=== PATIENT | female | born 1945 | race Caucasian/White ===

== ENCOUNTER 2017-10-08 18:09 | Observation (INO) | payer OTHER ==
[~2017-10-08] VITALS: Ht 154.9 cm; Wt 73.9 kg
[2017-10-08 18:45] VITALS: BP 128/60
[2017-10-08] MEDS ORDERED: FUROSEMIDE INJ 10 MG/ML 2 ML VIAL IV PRN (20:15)
[2017-10-08] MEDS ORDERED: SODIUM CHLORIDE 0.9% 250ML 250 ML IV ONE (21:00)
[2017-10-08 21:49] LABS: BASOPHILS % 0.7 % (0.0-1.0); EOSINOPHILS # (AUTO) 0.1 (0.0-0.4); EOSINOPHILS % 1.5 % (0.0-6.0); LYMPHOCYTES # (AUTO) 1.3 (1.0-3.2); LYMPHOCYTES % 21.3 % (18.0-39.1); MEAN CORPUSCULAR VOLUME 76.6 fL (81-99); MONOCYTES # (AUTO) 0.5 (0.2-0.8); MONOCYTES % 9.1 % (4.4-11.3); NEUTROPHILS % 66.9 % (38.7-80.0); PLATELET COUNT 259 x10e3/uL (140-360); RED BLOOD COUNT 2.65 x10e6/uL (3.6-5.1); RED CELL DISTRIBUTION WIDTH 16.2 % (11.7-14.4)
[2017-10-08 21:57] LABS: HEMOGLOBIN 6.1 g/dL (12.0-16.0)
[2017-10-08 21:58] LABS: HEMATOCRIT 20.3 % (34.2-44.1)
[2017-10-09] VITALS: BP 133/60
[2017-10-09] MEDS ORDERED: SODIUM CHLORIDE 0.9% 250ML 250 ML ONE (04:23)
[2017-10-09 04:47] VITALS: BP 128/60
[2017-10-09] MEDS ORDERED: B-121000 MCG PO (05:16)
[2017-10-09] MEDS ORDERED: LISINOPRIL10 MG PO (05:16)
[2017-10-09] MEDS ORDERED: ALPRAZOLAM0.25 MG PO (05:16)
[2017-10-09] MEDS ORDERED: VITAMIN D1000 UNI1 PO (05:16)
[2017-10-09] MEDS ORDERED: LOVASTATIN40 MG PO (05:16)
[2017-10-09] MEDS ORDERED: CELEBREX100 MG PO (05:16)
[2017-10-09] MEDS ORDERED: OMEPRAZOLE20 M1 PO (05:16)
[2017-10-09] MEDS ORDERED: ASACOL HD800 MG PO (05:16)
[2017-10-09] MEDS ORDERED: ZOLPIDEM TARTRA10 MG PO (05:16)
[2017-10-09] MEDS ORDERED: SERTRALINE HCL100 MG PO (05:16)
[2017-10-09 08:13] VITALS: BP 120/57
--- NOTE | 2017-10-09 09:59 | History and Physical ---
PCP: Dr. Brooks Guerra CHIEF COMPLAINT: Acute blood loss anemia. HISTORY: A 72-year-old female who has osteoarthritis has been taking Mobic and NSAIDs for pain. The patient complained of melena. She does have some epigastric discomfort. The patient's hemoglobin was 6.1 and hematocrit 20.3. The patient did receive 2 units blood transfusion. At this time, the patient does not want to stay for any endoscopy. She did have endoscopy previously by Dr. Damian, and did have some gastric ulcer. Patient does want to go home for now after blood transfusion. Advised the patient not to take any more NSAID medication. PAST MEDICAL HISTORY: Upper GI bleed, gastritis, gastric ulcer, osteoarthritis, ulcerative colitis. PAST SURGICAL HISTORY: Noncontributory. SOCIAL HISTORY: Patient does not smoke or use alcohol. No regular drugs. ALLERGIES: AMOXICILLIN, SULFA AND ACID. MEDICATIONS: List is available for review. She is on Xanax, Celebrex, Mobic, Zoloft, Ambien, Asacol, lovastatin, lisinopril, and vitamin D3. REVIEW OF SYSTEMS: As mentioned above. PHYSICAL EXAMINATION VITAL SIGNS: Temperature is 98, blood pressure 120/57, pulse rate 76, respiration 18. GENERAL: The patient is not in acute distress. HEENT: Normocephalic, atraumatic and anicteric. NECK: Supple grossly. PULMONARY: Clear to auscultation. CARDIOVASCULAR: Regular rate and rhythm. ABDOMEN: Soft and unremarkable. EXTREMITIES: No cyanosis or edema. NEUROLOGICAL: No focal deficit. LABORATORY: As mentioned. IMPRESSION: Upper gastrointestinal bleed: Patient wants to go home. Patient wants to go home today. Discharge the patient after 2 units of blood transfusion. PPI. Carafate suspension. Tylenol No. 3 instead of NSAID medications for pain. Job#: [id number] RI cc:BROOKS GUERRA MD
== END 2017-10-09 11:23 | disposition home or self-care (01) ==
LOC: IMCU 18:22
PROVIDERS: ADMIT Internal Medicine; ATTEND Internal Medicine
DX: K92.1 Melena (principal); D62 Acute posthemorrhagic anemia; K51.90 Ulcerative colitis, unspecified, without complications; K25.9 Gastric ulcer, unspecified as acute or chronic, without hemorrhage or perforation; M19.90 Unspecified osteoarthritis, unspecified site; Z87.11 Personal history of peptic ulcer disease; Z88.0 Allergy status to penicillin; Z88.2 Allergy status to sulfonamides; Z88.8 Allergy status to other drugs, medicaments and biological substances
CPT/HCPCS: 36415; 36430 ×2; 85025; 86850; 86900; 86920; G0378 ×2; J7050 ×2; P9016 ×2

== ENCOUNTER 2018-12-23 14:46 | Inpatient (IN) | payer MEDICARE, OTHER ==
[~2018-12-23] VITALS: Ht 170.2 cm; Wt 62.3 kg
[~2018-12-23 14:46] MED LIST: ALPRAZOLAM0.25 MG PO; ASACOL HD800 MG PO; B-121000 MCG PO; CELEBREX100 MG PO; LISINOPRIL10 MG PO; LOVASTATIN40 MG PO; OMEPRAZOLE20 M1 PO; SERTRALINE HCL100 MG PO; VITAMIN D1000 UNI1 PO; ZOLPIDEM TARTRA10 MG PO
[2018-12-23] MEDS ORDERED: HYDROCODONE/APAP 5MG-325MG TAB PO ONE (15:15)
[2018-12-23] MEDS ORDERED: CYCLOBENZAPRINE HCL 10 MG TAB PO ONE (15:15)
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
[2018-12-23 19:37] LABS: BASOPHILS # (AUTO) 0.1 (0.0-0.1); BASOPHILS % 0.4 % (0.0-1.0); EOSINOPHILS % 0.2 % (0.0-6.0); HEMATOCRIT 38.1 % (34.2-44.1); LYMPHOCYTES # (AUTO) 0.9 (1.0-3.2); LYMPHOCYTES % 7.2 % (18.0-39.1); MEAN CORPUSCULAR HEMOGLOBIN 28.5 pg (28-32); MEAN CORPUSCULAR HGB CONC 34.1 g/dL (31-35); MEAN CORPUSCULAR VOLUME 83.6 fL (81-99); MONOCYTES # (AUTO) 0.6 (0.2-0.8); MONOCYTES % 5.3 % (4.4-11.3); NEUTROPHILS # (AUTO) 10.5 (2.1-6.9); NEUTROPHILS % 86.4 % (38.7-80.0); PLATELET COUNT 160 x10e3/uL (140-360); RED BLOOD COUNT 4.56 x10e6/uL (3.6-5.1)
[2018-12-23 19:43] LABS: INR 0.97; PROTHROMBIN TIME 13.4 seconds (11.9-14.5)
[2018-12-23 19:44] LABS: PARTIAL THROMBOPLASTIN TIME 29.9 seconds (23.8-35.5)
[2018-12-23 19:46] LABS: BILIRUBIN,URINE NEGATIVE (NEGATIVE); CLARITY,URINE SL CLOUDY (CLEAR); COLOR,URINE YELLOW (YELLOW); KETONES,URINE NEGATIVE (NEGATIVE); LEUKOCYTE ESTERASE ,URINE NEGATIVE (NEGATIVE); NITRITE,URINE NEGATIVE (NEGATIVE); PROTEIN,URINE DIPSTICK NEGATIVE (NEGATIVE); URINE UROBILINOGEN 0.2 mg/dL (0.2 - 1)
[2018-12-23 19:51] LABS: ALANINE AMINOTRANSFERASE 18 IU/L (0-55); ALBUMIN 4.4 g/dL (3.5-5.0); ALBUMIN/GLOBULIN RATIO 1.5 (0.8-2.0); ALKALINE PHOSPHATASE 91 IU/L (40-150); ANION GAP 14.1 mmol/L (8-16); BLOOD UREA NITROGEN 19 mg/dL (7-26); BUN/CREATININE RATIO 21 (6-25); CALCIUM 9.9 mg/dL (8.4-10.2); CARBON DIOXIDE 21 mmol/L (22-29); CHLORIDE 105 mmol/L (98-107); EST GLOMERULAR FILTRATION RATE > 60 ML/MIN (60-); GLUCOSE 119 mg/dL (74-118); POTASSIUM 3.1 mmol/L (3.5-5.1); SODIUM 137 mmol/L (136-145)
[2018-12-23 19:56] LABS: BACTERIA,URINE FEW /HPF; EPITHELIAL CELLS,URINE FEW /LPF
[2018-12-23] MEDS ORDERED: HYDROMORPHONE 1MG/1ML INJ IV STA (20:03)
[2018-12-23] MEDS ORDERED: HYDROMORPHONE 2MG/ML 2 MG/ML ML ONE (20:30)
[2018-12-23] MEDS ORDERED: HYDROMORPHONE 2MG/ML 2 MG/ML ML IV ONE (20:30)
--- NOTE | 2018-12-23 20:39 | NUR ---
MEDICATED FOR PAIN THEN APPLIED POSTERIOR SPLINT WITH ANKLE STIRRUP, TOLERATED WELL, NV'S INTACT
[2018-12-23] MEDS ORDERED: SODIUM CHLORIDE 0.9% 1000ML 1,000 ML IV SCH (20:59)
[2018-12-23] MEDS ORDERED: HYDROMORPHONE 1MG/1ML INJ IV PRN (21:00)
[2018-12-23] MEDS ORDERED: ONDANSETRON HCL INJ 2MG/ML 2ML 2 MG/ML VIAL IV PRN (21:00)
[2018-12-23] MEDS ORDERED: HYDROMORPHONE 2MG/ML 2 MG/ML ML IV PRN (21:30)
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
--- NOTE | 2018-12-23 21:42 | NUR ---
PT DENIES PAIN TO RIGHT ANKLE, RESTING IN POC WITH EYES CLOSED, EASILY AROUSED. SKIN W/D RESP NONLAB. NAD NOTED. CAP REFILL <2 SECONDS TO R FOOT
[2018-12-23] MEDS ORDERED: ASACOL HD800 MG PO (23:22)
--- NOTE | 2018-12-23 23:52 | NUR ---
RECEIVED PATIENT AAOX3. RLE IN A SPLINT, PULSES INTACT. ABRASIONS TO CHIN, AND RIGHT KNEE. SKIN TEAR TO RIGHT FOREARM. STATES PAIN 6/10 BUT DOES NOT WANT IV PAIN MEDICATION AT THIS TIME. 18G LEFT AC W/ NS @ 100 ML/HR. UPDATES PATIENT TO PLAN OF CARE. NO NEEDS VOICED AT THIS TIME. BED LOCKED AND IN LOWEST POSITION, CALL LIGHT WITHIN EASY REACH.
[2018-12-24] VITALS (10 sets, daily range): BP systolic 133–166; BP diastolic 62–72
[2018-12-24 06:44] LABS: BASOPHILS % 0.3 % (0.0-1.0); EOSINOPHILS % 0.3 % (0.0-6.0); HEMATOCRIT 32.3 % (34.2-44.1); LYMPHOCYTES # (AUTO) 0.7 (1.0-3.2); LYMPHOCYTES % 10.1 % (18.0-39.1); MEAN CORPUSCULAR HEMOGLOBIN 28.1 pg (28-32); MEAN CORPUSCULAR HGB CONC 33.1 g/dL (31-35); MEAN CORPUSCULAR VOLUME 84.8 fL (81-99); MONOCYTES # (AUTO) 0.6 (0.2-0.8); MONOCYTES % 8.9 % (4.4-11.3); NEUTROPHILS # (AUTO) 5.4 (2.1-6.9); NEUTROPHILS % 80.1 % (38.7-80.0); PLATELET COUNT 139 x10e3/uL (140-360); RED BLOOD COUNT 3.81 x10e6/uL (3.6-5.1)
[2018-12-24 07:03] LABS: ALANINE AMINOTRANSFERASE 13 IU/L (0-55); ALBUMIN 3.5 g/dL (3.5-5.0); ALBUMIN/GLOBULIN RATIO 1.3 (0.8-2.0); ALKALINE PHOSPHATASE 72 IU/L (40-150); ANION GAP 12.5 mmol/L (8-16); BLOOD UREA NITROGEN 15 mg/dL (7-26); BUN/CREATININE RATIO 19 (6-25); CALCIUM 9.1 mg/dL (8.4-10.2); CARBON DIOXIDE 22 mmol/L (22-29); CHLORIDE 104 mmol/L (98-107); CREATININE, SERUM 0.81 mg/dL (0.57-1.11); EST GLOMERULAR FILTRATION RATE > 60 ML/MIN (60-); GLUCOSE 118 mg/dL (74-118); POTASSIUM 3.5 mmol/L (3.5-5.1); SODIUM 135 mmol/L (136-145)
[2018-12-24 07:16] LABS: HEMOGLOBIN 10.7 g/dL (12.0-16.0)
[2018-12-24] MEDS: MELOXICAM 7.5 MG TAB PO SCH ×2 (08:45→16:58)
[2018-12-24] MEDS ORDERED: NON-FORMULARY MEDICATION (Zolpidem Tartrate 10 MG) PO PRN (08:45)
[2018-12-24] MEDS ORDERED: ALPRAZOLAM 0.25 MG TAB PO PRN (08:45)
[2018-12-24] MEDS: SENNOSIDES 8.6 MG TAB PO SCH ×2 (09:00→16:58)
[2018-12-24] MEDS ORDERED: MESALAMINE 1600 MG PO SCH (09:00)
[2018-12-24] MEDS ORDERED: NON-FORMULARY MEDICATION (Cyanocobalamin (Vitamin B-12) (B-12) 1,000 MCG) PO SCH (09:00)
[2018-12-24] MEDS ORDERED: MESALAMINE 400 MG CAP PO SCH (09:00)
[2018-12-24] MEDS ORDERED: ZOLPIDEM TARTRATE 10 MG TAB PO PRN (09:15)
--- NOTE | 2018-12-24 10:00 | NUR ---
MD EDMOND ROUNDED ON PT AND EXPLAINED PT OPTIONS . PT OPT FOR NO SX DURING ADMISSION . MD EDMOND ORDERED A REG DIET AND PHYSICAL THERAPY TO COME WORK WITH PT A THIS TIME
[2018-12-24] MEDS: LISINOPRIL 10 MG TAB PO SCH (10:27)
[2018-12-24] MEDS: SERTRALINE HCL 100 MG TAB PO SCH (10:28)
[2018-12-24] MEDS: CHOLECALCIFEROL 1,000 UNIT TAB PO SCH (10:28)
[2018-12-24] MEDS: PANTOPRAZOLE SOD 40 MG TABEC PO SCH (10:28)
[2018-12-24] MEDS: CYANOCOBALAMIN 1,000 MCG TAB PO SCH (10:28)
[2018-12-24] MEDS: HYDROCODONE/APAP 5MG-325MG TAB PO PRN ×2 (10:29→22:06)
--- NOTE | 2018-12-24 13:59 | NUR ---
Spoke with Dr. Bonilla regarding patient being placed in a boot for therapy. Dr. bonilla informed for patient to stay in splint until she follow up with him in the office. He will place her in a boot. patient to be toe touch weight bear
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
--- NOTE | 2018-12-24 14:05 | NUR ---
Visit made by the Spiritual Care Department Pastoral Visitor, Pamela Chicas. PV provided pastoral presence, prayer, hospitality, and supportive listening. Pastoral Visitor informed pt/family of the scope of [facility] and availability. SADIE WADSWORTH Glass [employer] Spiritual Care Department O: [phone] Pager: [phone] ([phone] number calling from)
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
--- NOTE | 2018-12-24 19:20 | NUR ---
RECEIVED PATIENT AAOX3, RESTING IN BED. RLE IN SPLINT. BREATHING EVEN AND UNLABORED. NO NEEDS VOICED AT THIS TIME. BED LOCKED AND IN LOWEST POSITION, CALL LIGHT WITHIN EASY REACH. WILL CONTINUE TO MONITOR PATIENT CLOSELY.
[2018-12-24] MEDS: MESALAMINE 400 MG CAP PO SCH (21:45)
[2018-12-24] MEDS: SIMVASTATIN 20 MG TAB PO SCH (21:45)
[2018-12-25] VITALS (8 sets, daily range): BP systolic 111–135; BP diastolic 56–63
[2018-12-25 06:26] LABS: BASOPHILS % 0.3 % (0.0-1.0); EOSINOPHILS # (AUTO) 0.1 (0.0-0.4); EOSINOPHILS % 0.9 % (0.0-6.0); HEMATOCRIT 30.8 % (34.2-44.1); HEMOGLOBIN 10.2 g/dL (12.0-16.0); LYMPHOCYTES # (AUTO) 0.7 (1.0-3.2); LYMPHOCYTES % 10.6 % (18.0-39.1); MEAN CORPUSCULAR HEMOGLOBIN 27.9 pg (28-32); MEAN CORPUSCULAR HGB CONC 33.1 g/dL (31-35); MEAN CORPUSCULAR VOLUME 84.2 fL (81-99); MONOCYTES # (AUTO) 0.7 (0.2-0.8); MONOCYTES % 9.7 % (4.4-11.3); NEUTROPHILS # (AUTO) 5.2 (2.1-6.9); NEUTROPHILS % 78.1 % (38.7-80.0); PLATELET COUNT 131 x10e3/uL (140-360); RED BLOOD COUNT 3.66 x10e6/uL (3.6-5.1)
[2018-12-25 06:45] LABS: ANION GAP 12.3 mmol/L (8-16); BLOOD UREA NITROGEN 11 mg/dL (7-26); BUN/CREATININE RATIO 14 (6-25); CALCIUM 9.2 mg/dL (8.4-10.2); CARBON DIOXIDE 21 mmol/L (22-29); CHLORIDE 108 mmol/L (98-107); EST GLOMERULAR FILTRATION RATE > 60 ML/MIN (60-); GLUCOSE 129 mg/dL (74-118); POTASSIUM 3.3 mmol/L (3.5-5.1); SODIUM 138 mmol/L (136-145)
[2018-12-25] MEDS: SENNOSIDES 8.6 MG TAB PO SCH ×2 (09:00→17:00)
[2018-12-25] MEDS: HYDROCODONE/APAP 5MG-325MG TAB PO PRN (09:49)
[2018-12-25] MEDS: MESALAMINE 400 MG CAP PO SCH ×2 (09:54→20:18)
[2018-12-25] MEDS: LISINOPRIL 10 MG TAB PO SCH (09:54)
[2018-12-25] MEDS: CYANOCOBALAMIN 1,000 MCG TAB PO SCH (09:55)
[2018-12-25] MEDS: SERTRALINE HCL 100 MG TAB PO SCH (09:55)
[2018-12-25] MEDS: PANTOPRAZOLE SOD 40 MG TABEC PO SCH (09:55)
[2018-12-25] MEDS: CHOLECALCIFEROL 1,000 UNIT TAB PO SCH (09:55)
[2018-12-25] MEDS: ACETAMINOPHEN/CODEINE 300MG - 30MG TAB PO PRN ×2 (15:00→22:07)
--- NOTE | 2018-12-25 19:10 | NUR ---
BED SIDE SHIFT REPORT PERFORMED WITH OFF GOING NURSE Luz BOURGEOIS RN. RECEIVED PT LAYING SEMI FOWLERS IN BED, AAOX3, RR EVEN AND NON-LABORED, ON RA. (R) LOWER EXTREMITY NOTED TO BE IN SPLINT WITH RUTHIE WRAP. LEFT PT LAYING SEMI FOWLERS IN BED, BED IN LOW LOCKED POSITION, SIDE RAILS UPX2, CALL LIGHT AND PHONE WITHIN REACH.
[2018-12-25] MEDS: SIMVASTATIN 20 MG TAB PO SCH (20:18)
[2018-12-26] VITALS (8 sets, daily range): BP systolic 114–141; BP diastolic 53–65
--- NOTE | 2018-12-26 07:00 | NUR ---
BEDSIDE ROUNDS COMPLETE NO DISTRESS NOTED, UPDATED ON POC VOICED UNDERSTANDING, DENIES PAIN AT THIS TIME, CALL LIGHT IN REACH WILL CONTINUE OT MONITOR
[2018-12-26] MEDS: SENNOSIDES 8.6 MG TAB PO SCH ×2 (09:00→17:00)
[2018-12-26] MEDS: SERTRALINE HCL 100 MG TAB PO SCH (09:16)
[2018-12-26] MEDS: LISINOPRIL 10 MG TAB PO SCH (09:16)
[2018-12-26] MEDS: PANTOPRAZOLE SOD 40 MG TABEC PO SCH (09:16)
[2018-12-26] MEDS: CYANOCOBALAMIN 1,000 MCG TAB PO SCH (09:16)
[2018-12-26] MEDS: MESALAMINE 400 MG CAP PO SCH ×2 (09:16→21:28)
[2018-12-26] MEDS: CHOLECALCIFEROL 1,000 UNIT TAB PO SCH (09:18)
--- NOTE | 2018-12-26 15:48 | NUR ---
SPOKE WITH PATIENT SHE HAS CHOSEN [facility] FOR SNF. FILED CHOICE IN CHART. FAXED CLINICALS WILL UPDATE ON PROGRESS.
--- NOTE | 2018-12-26 19:27 | NUR ---
BEDSIDE SHIFT REPORT RECEIVED FROM OFF GOING NURSE Luz BOURGEOIS RN. RECEIVED PT LAYING SEMI FOWLERS IN BED, AAOX3, RR EVEN AND NON-LABORED, ON RA. REPOSITIONED PT FOR COMFORT. (R) LOWER EXTREMITY SPLINT NOTED TO BE INTACT. LEFT PT LAYING SEMI FOWLERS IN BED, BED IN LOW LOCKED POSITION, SIDE RAILS UPX2, CALL LIGHT AND PHONE WITHIN REACH.
[2018-12-26] MEDS ORDERED: SIMVASTATIN 40 MG TAB PO SCH (21:00)
[2018-12-27] VITALS (7 sets, daily range): BP systolic 118–137; BP diastolic 56–64
[2018-12-27 06:27] LABS: ANION GAP 11.6 mmol/L (8-16); BLOOD UREA NITROGEN 15 mg/dL (7-26); BUN/CREATININE RATIO 19 (6-25); CARBON DIOXIDE 23 mmol/L (22-29); CHLORIDE 108 mmol/L (98-107); CREATININE, SERUM 0.79 mg/dL (0.57-1.11); EST GLOMERULAR FILTRATION RATE > 60 ML/MIN (60-); GLUCOSE 113 mg/dL (74-118); POTASSIUM 3.6 mmol/L (3.5-5.1); SODIUM 139 mmol/L (136-145)
--- NOTE | 2018-12-27 07:16 | NUR ---
Rcvd patient in report this am. Patient is asleep in bed at this time. No s/s of distress noted
[2018-12-27] MEDS: SENNOSIDES 8.6 MG TAB PO SCH ×2 (09:00→17:00)
[2018-12-27] MEDS: MESALAMINE 400 MG CAP PO SCH (09:20)
[2018-12-27] MEDS: CYANOCOBALAMIN 1,000 MCG TAB PO SCH (09:21)
[2018-12-27] MEDS: SERTRALINE HCL 100 MG TAB PO SCH (09:21)
[2018-12-27] MEDS: CHOLECALCIFEROL 1,000 UNIT TAB PO SCH (09:21)
[2018-12-27] MEDS: PANTOPRAZOLE SOD 40 MG TABEC PO SCH (09:21)
[2018-12-27] MEDS: LISINOPRIL 10 MG TAB PO SCH (09:21)
--- NOTE | 2018-12-27 09:30 | NUR ---
IMM EXPLAINED TO PT, SIGNED AND PLACED ON CHART COPY TO PT IN CARE TRANSITION FOLDER
--- NOTE | 2018-12-27 14:56 | NUR ---
SPOKE WITH [facility] PT ACCEPTED TO GO TODAY ROOM [address] [place] [id number] [facility] [id number], CALL REPORT TO [phone].
--- NOTE | 2018-12-27 15:21 | NUR ---
Castano catheter removed at this time. Tip intact. 600 mL of clear, orange urine noted. Patient due to void in 6 hours.
--- NOTE | 2018-12-27 17:32 | NUR ---
Patient voided at this time.
--- NOTE | 2018-12-27 17:50 | NUR ---
Report called to [facility] and spoke with ben
--- NOTE | 2018-12-27 18:05 | NUR ---
IV removed from L AC, tip intact. Pressure dressing applied.
--- NOTE | 2018-12-27 19:02 | NUR ---
Patient discharged from facility to SNF. Patient transported via [facility]. Report was called prior to discharge and spoke with
== END 2018-12-27 18:58 | DRG 563 ==
LOC: ER 14:46 → ERHOLD 21:34 → MED/SURG 23:59
PROVIDERS: ADMIT Internal Medicine; ATTEND Internal Medicine
DX: S82.851A Displaced trimalleolar fracture of right lower leg, initial encounter for closed fracture (principal); S00.81XA Abrasion of other part of head, initial encounter; S80.01XA Contusion of right knee, initial encounter; S20.212A Contusion of left front wall of thorax, initial encounter; S00.531A Contusion of lip, initial encounter; I10 Essential (primary) hypertension; E11.9 Type 2 diabetes mellitus without complications; E78.5 Hyperlipidemia, unspecified; F41.9 Anxiety disorder, unspecified; Z82.49 Family history of ischemic heart disease and other diseases of the circulatory system; V43.52XA Car driver injured in collision with other type car in traffic accident, initial encounter; Y93.89 Activity, other specified; Y92.410 Unspecified street and highway as the place of occurrence of the external cause
CPT/HCPCS: 36415; 51700; 70450; 70486; 71045; 72125; 80048; 80053; 81001; 85025; 85610; 85730; 93005; 97139; 99284; J7030

== ENCOUNTER 2024-10-11 08:29 | Inpatient (IN) | payer MEDICARE ==
[2024-10-11] VITALS (7 sets, daily range): BP systolic 120–129; BP diastolic 46–64; PULSE 64–74; RESP 16–18; TEMP 96.7–98.5; O2SAT 98–100
[~2024-10-11] VITALS: Ht 170.2 cm; Wt 62.1 kg
[2024-10-11] MEDS: METHYLPREDNISOLONE SOD SUCC 125 MG/2ML VIAL IV ONE (09:19)
[2024-10-11 09:21] LABS: BASOPHILS % 0.8 % (0.0-1.0); EOSINOPHILS # (AUTO) 0.1 (0.0-0.4); EOSINOPHILS % 2.6 % (0.0-6.0); HEMATOCRIT 35.1 % (34.2-44.1); HEMOGLOBIN 10.8 g/dL (12.0-16.0); LYMPHOCYTES # (AUTO) 0.7 (1.0-3.2); LYMPHOCYTES % 13.9 % (18.0-39.1); MEAN CORPUSCULAR HEMOGLOBIN 27.5 pg (28-32); MEAN CORPUSCULAR HGB CONC 30.8 g/dL (31-35); MEAN CORPUSCULAR VOLUME 89.3 fL (81-99); MONOCYTES # (AUTO) 0.3 (0.2-0.8); MONOCYTES % 6.9 % (4.4-11.3); NEUTROPHILS # (AUTO) 3.7 (2.1-6.9); NEUTROPHILS % 75.2 % (38.7-80.0); RED BLOOD COUNT 3.93 x10e6/uL (3.6-5.1); WHITE BLOOD COUNT 4.96 x10e3/uL (4.8-10.8)
[2024-10-11 09:25] LABS: PLATELET COUNT 9 x10e3/uL (140-360)
[2024-10-11 09:29] LABS: INR 0.91; PROTHROMBIN TIME 12.8 seconds (11.9-14.5)
[2024-10-11 09:42] LABS: ALBUMIN 3.8 g/dL (3.5-5.0); ALBUMIN/GLOBULIN RATIO 1.5 (0.8-2.0); ANION GAP 15.5 mmol/L (8-16); BILIRUBIN,TOTAL 0.6 mg/dL (0.2-1.2); CALCIUM 9.1 mg/dL (8.4-10.2); CREATININE, SERUM 1.07 mg/dL (0.57-1.11); MAGNESIUM 1.8 MG/DL (1.3-2.1); POTASSIUM 3.5 mmol/L (3.5-5.1); TOTAL PROTEIN 6.4 g/dL (6.5-8.1)
[2024-10-11] MEDS ORDERED: ONDANSETRON HCL INJ 2MG/ML 2ML 2 MG/ML VIAL IV PRN (09:45)
[2024-10-11 09:48] LABS: CLARITY,URINE TURBID (CLEAR); COLOR,URINE BROWN (YELLOW)
[2024-10-11 09:49] LABS: BILIRUBIN,URINE MODERATE (NEGATIVE); GLUCOSE, URINE NEGATIVE (NEGATIVE); KETONES,URINE TRACE (NEGATIVE); LEUKOCYTE ESTERASE ,URINE TRACE (NEGATIVE); NITRITE,URINE NEGATIVE (NEGATIVE); PH,URINE 5.5 (5 - 7); PROTEIN,URINE DIPSTICK >=300 (NEGATIVE); TROPONIN I 0.005 ng/mL (0-0.300); URINE UROBILINOGEN 1 mg/dL (0.2 - 1)
[2024-10-11 09:55] LABS: BACTERIA,URINE FEW /HPF; EPITHELIAL CELLS,URINE FEW /LPF; RBC,URINE >50 /HPF (0-5)
[2024-10-11] MEDS ORDERED: DEXTROSE 50% SYRINGE 50 ML IV PRN (13:00)
[2024-10-11] MEDS: SODIUM CHLORIDE 0.45% 1,000 ML IV SCH (13:15)
[2024-10-11 13:44] LABS: CHOL/HDL RATIO 3.4 (3.0-3.6)
[2024-10-11 14:19] LABS: FOLATE 12.2 ng/mL (7.0-15.4)
[2024-10-11 16:16] LABS: BASOPHILS % 0.3 % (0.0-1.0); EOSINOPHILS % 0.2 % (0.0-6.0); HEMATOCRIT 34.8 % (34.2-44.1); HEMOGLOBIN 10.7 g/dL (12.0-16.0); LYMPHOCYTES # (AUTO) 0.3 (1.0-3.2); LYMPHOCYTES % 5.5 % (18.0-39.1); MEAN CORPUSCULAR HEMOGLOBIN 27.1 pg (28-32); MEAN CORPUSCULAR HGB CONC 30.7 g/dL (31-35); MEAN CORPUSCULAR VOLUME 88.1 fL (81-99); MONOCYTES # (AUTO) 0.1 (0.2-0.8); MONOCYTES % 1.2 % (4.4-11.3); NEUTROPHILS # (AUTO) 5.3 (2.1-6.9); NEUTROPHILS % 91.9 % (38.7-80.0); RED BLOOD COUNT 3.95 x10e6/uL (3.6-5.1); RED CELL DISTRIBUTION WIDTH 14.6 % (11.7-14.4); WHITE BLOOD COUNT 5.78 x10e3/uL (4.8-10.8)
[2024-10-11 16:22] LABS: PLATELET COUNT 26 x10e3/uL (140-360)
[2024-10-11] MEDS: INSULIN REGULAR, HUMAN 100 UNIT/1 ML SQ SCH (16:30)
[2024-10-11] MEDS: IMMUNE GLOBULIN IV SCH (17:45)
[2024-10-11] MEDS: SODIUM CHLORIDE 0.9% 250ML 250 ML ONE (19:52)
[2024-10-11] MEDS: ACETAMINOPHEN 325 MG TAB PO PRN (21:30)
[2024-10-12] VITALS (8 sets, daily range): BP systolic 111–137; BP diastolic 49–93; PULSE 58–84; RESP 16–18; TEMP 97.2–99.2; O2SAT 96–98
[2024-10-12 04:55] LABS: BASOPHILS % 0.2 % (0.0-1.0); HEMATOCRIT 28.9 % (34.2-44.1); HEMOGLOBIN 9.3 g/dL (12.0-16.0); LYMPHOCYTES # (AUTO) 0.4 (1.0-3.2); MEAN CORPUSCULAR HGB CONC 32.2 g/dL (31-35); MONOCYTES # (AUTO) 0.3 (0.2-0.8); MONOCYTES % 4.9 % (4.4-11.3); NEUTROPHILS # (AUTO) 5.8 (2.1-6.9); NEUTROPHILS % 88.4 % (38.7-80.0); RED BLOOD COUNT 3.44 x10e6/uL (3.6-5.1); RED CELL DISTRIBUTION WIDTH 14.6 % (11.7-14.4); WHITE BLOOD COUNT 6.55 x10e3/uL (4.8-10.8)
[2024-10-12 05:20] LABS: ALBUMIN 3.4 g/dL (3.5-5.0); ANION GAP 13.5 mmol/L (8-16); BILIRUBIN,TOTAL 0.5 mg/dL (0.2-1.2); CREATININE, SERUM 1.09 mg/dL (0.57-1.11); POTASSIUM 3.5 mmol/L (3.5-5.1); TOTAL PROTEIN 6.7 g/dL (6.5-8.1)
[2024-10-12 05:42] LABS: PLATELET COUNT 44 x10e3/uL (140-360)
[2024-10-12 05:55] LABS: FERRITIN 103.69 ng/mL (4.63-204.00)
[2024-10-12] MEDS: SERTRALINE HCL 100 MG TAB PO SCH (09:10)
[2024-10-12] MEDS: OYST-CAL-D 500MG TABLET PO SCH (09:11)
[2024-10-12] MEDS: SODIUM BICARBONATE 8.4% VIAL 50 ML in SODIUM CHLORIDE 0.45% 1,000 ML IV SCH (10:43)
[2024-10-12] MEDS: MESALAMINE 400 MG CAP PO SCH (12:12)
[2024-10-12] MEDS: ALPRAZOLAM 0.25 MG TAB PO PRN (12:13)
[2024-10-12] MEDS: PANTOPRAZOLE SOD 40 MG TABEC PO SCH (12:13)
[2024-10-12] MEDS: SODIUM FERRIC GLUCONATE COMPLX 125 MG in SODIUM CHLORIDE 0.9% 100 ML IV SCH (12:48)
[2024-10-12] MEDS: ZOLPIDEM TARTRATE 10 MG TAB PO PRN (21:59)
[2024-10-12] MEDS: SIMVASTATIN 40 MG TAB PO SCH (21:59)
[2024-10-12] MEDS ORDERED: SODIUM CHLORIDE 0.9% 0 ML ONE (23:49)
[2024-10-12] MEDS ORDERED: IOPAMIDOL 370 MG/ML 100 ML INFUS..BTL INJ ONE (23:49)
[2024-10-13] VITALS (10 sets, daily range): BP systolic 115–156; BP diastolic 52–69; PULSE 62–79; RESP 16–20; TEMP 97.8–99.6; O2SAT 98–100
[2024-10-13] MEDS ORDERED: PANTOPRAZOLE SOD 40 MG TABEC PO SCH (09:00)
[2024-10-13] MEDS ORDERED: MESALAMINE 400 MG CAP PO SCH (09:00)
[2024-10-13] MEDS: LISINOPRIL 10 MG TAB PO SCH (09:00)
[2024-10-13] MEDS: CYANOCOBALAMIN 1,000 MCG TAB PO SCH (09:16)
[2024-10-13] MEDS ORDERED: IOPAMIDOL 370 MG/ML 100 ML INFUS..BTL INJ ONE (10:21)
[2024-10-13] MEDS ORDERED: SODIUM CHLORIDE 0.9% 100 ML ONE (10:21)
[2024-10-13 12:30] LABS: BASOPHILS % 0.5 % (0.0-1.0); EOSINOPHILS % 0.3 % (0.0-6.0); HEMATOCRIT 32.7 % (34.2-44.1); HEMOGLOBIN 9.9 g/dL (12.0-16.0); LYMPHOCYTES % 16.2 % (18.0-39.1); MEAN CORPUSCULAR HEMOGLOBIN 27.1 pg (28-32); MEAN CORPUSCULAR HGB CONC 30.3 g/dL (31-35); MEAN CORPUSCULAR VOLUME 89.6 fL (81-99); MONOCYTES # (AUTO) 0.5 (0.2-0.8); MONOCYTES % 7.8 % (4.4-11.3); NEUTROPHILS # (AUTO) 4.4 (2.1-6.9); NEUTROPHILS % 74.9 % (38.7-80.0); PLATELET COUNT 56 x10e3/uL (140-360); RED BLOOD COUNT 3.65 x10e6/uL (3.6-5.1); WHITE BLOOD COUNT 5.86 x10e3/uL (4.8-10.8)
[2024-10-13 15:36] LABS: HEPATITIS A ANTIBODY IGM (P) Nonreactive; HEPATITIS B CORE IGM (P) Nonreactive; HEPATITIS B SURFACE AG (P) Nonreactive; HEPATITIS C ANTIBODY Nonreactive
[2024-10-14 05:21] LABS: BASOPHILS % 0.6 % (0.0-1.0); EOSINOPHILS # (AUTO) 0.1 (0.0-0.4); EOSINOPHILS % 1.2 % (0.0-6.0); HEMATOCRIT 30.7 % (34.2-44.1); HEMOGLOBIN 9.5 g/dL (12.0-16.0); LYMPHOCYTES # (AUTO) 0.9 (1.0-3.2); LYMPHOCYTES % 18.1 % (18.0-39.1); MEAN CORPUSCULAR HEMOGLOBIN 27.5 pg (28-32); MEAN CORPUSCULAR HGB CONC 30.9 g/dL (31-35); MEAN CORPUSCULAR VOLUME 88.7 fL (81-99); MONOCYTES # (AUTO) 0.5 (0.2-0.8); MONOCYTES % 9.9 % (4.4-11.3); NEUTROPHILS # (AUTO) 3.5 (2.1-6.9); NEUTROPHILS % 69.8 % (38.7-80.0); PLATELET COUNT 79 x10e3/uL (140-360); RED BLOOD COUNT 3.46 x10e6/uL (3.6-5.1); RED CELL DISTRIBUTION WIDTH 14.9 % (11.7-14.4); WHITE BLOOD COUNT 5.04 x10e3/uL (4.8-10.8)
[2024-10-14 05:31] VITALS: BP 130/54; PULSE 67; RESP 20; TEMP 97.9; O2SAT 100
[2024-10-14 09:00] VITALS: BP 119/59; PULSE 68; RESP 20; TEMP 99; O2SAT 100
[2024-10-14 11:55] VITALS: BP 137/60; PULSE 67; RESP 18; TEMP 98.8; O2SAT 96
[2024-10-14] MEDS ORDERED: IMMUNE GLOBULIN IV SCH (12:00)
[2024-10-14] MEDS: IMMUNE GLOBULIN IV SCH (12:18)
[2024-10-14] MEDS: PREDNISONE 20 MG TAB PO SCH (12:26)
[2024-10-14 16:00] VITALS: BP 122/55; PULSE 72; RESP 18; TEMP 98.3; O2SAT 95
[2024-10-14 20:00] VITALS: BP 122/55; PULSE 72; RESP 18; TEMP 98.3; O2SAT 95
[2024-10-14 21:40] VITALS: BP 139/60; PULSE 65; RESP 18; TEMP 97.8; O2SAT 96
[2024-10-15 04:00] VITALS: BP 127/55; PULSE 50; RESP 17; TEMP 97.8; O2SAT 98
[2024-10-15] MEDS ORDERED: FERROUS SULFAT325 M1 PO (05:18)
[2024-10-15] MEDS ORDERED: PREDNISONE20 MG PO (05:18)
[2024-10-15 05:32] LABS: BASOPHILS % 0.2 % (0.0-1.0); HEMATOCRIT 27.4 % (34.2-44.1); HEMOGLOBIN 9.1 g/dL (12.0-16.0); LYMPHOCYTES # (AUTO) 0.4 (1.0-3.2); LYMPHOCYTES % 9.4 % (18.0-39.1); MEAN CORPUSCULAR HEMOGLOBIN 27.7 pg (28-32); MEAN CORPUSCULAR HGB CONC 33.2 g/dL (31-35); MEAN CORPUSCULAR VOLUME 83.5 fL (81-99); MONOCYTES # (AUTO) 0.2 (0.2-0.8); MONOCYTES % 4.5 % (4.4-11.3); PLATELET COUNT 98 x10e3/uL (140-360); RED BLOOD COUNT 3.28 x10e6/uL (3.6-5.1); RED CELL DISTRIBUTION WIDTH 14.5 % (11.7-14.4); WHITE BLOOD COUNT 4.69 x10e3/uL (4.8-10.8)
[2024-10-15 08:07] VITALS: BP 135/51; PULSE 71; RESP 16; O2SAT 98
[2024-10-15 09:03] VITALS: BP 135/51; PULSE 71; RESP 16; TEMP 97.8; O2SAT 98
[2024-10-15 11:47] VITALS: BP 141/58; PULSE 55; RESP 16; O2SAT 99
== END 2024-10-15 13:59 | disposition home or self-care (01) | DRG 813 ==
LOC: ER 08:39 → ERHOLD 09:51 → MED/SURG 10:53
PROVIDERS: ADMIT Internal Medicine; ATTEND Internal Medicine
PROC: 30233R1 Transfusion of Nonautologous Platelets into Peripheral Vein, Percutaneous Approach (ICD-10-PCS; principal; 2024-10-11)
DX: D69.3 Immune thrombocytopenic purpura (principal); E87.20 Acidosis, unspecified; N17.9 Acute kidney failure, unspecified; K51.90 Ulcerative colitis, unspecified, without complications; C64.1 Malignant neoplasm of right kidney, except renal pelvis; D70.2 Other drug-induced agranulocytosis; E11.22 Type 2 diabetes mellitus with diabetic chronic kidney disease; D50.9 Iron deficiency anemia, unspecified; I12.9 Hypertensive chronic kidney disease with stage 1 through stage 4 chronic kidney disease, or unspecified chronic kidney disease; N18.9 Chronic kidney disease, unspecified; K21.9 Gastro-esophageal reflux disease without esophagitis; E78.5 Hyperlipidemia, unspecified; M19.90 Unspecified osteoarthritis, unspecified site; F41.9 Anxiety disorder, unspecified; R31.9 Hematuria, unspecified; R32 Unspecified urinary incontinence; R16.1 Splenomegaly, not elsewhere classified; T36.1X5A Adverse effect of cephalosporins and other beta-lactam antibiotics, initial encounter; R51.9 Headache, unspecified; S02.2XXD Fracture of nasal bones, subsequent encounter for fracture with routine healing; S00.11XD Contusion of right eyelid and periocular area, subsequent encounter; X58.XXXD Exposure to other specified factors, subsequent encounter; Z88.1 Allergy status to other antibiotic agents; Z88.2 Allergy status to sulfonamides; Z88.7 Allergy status to serum and vaccine; Z88.8 Allergy status to other drugs, medicaments and biological substances
CPT/HCPCS: 36415; 70450; 70486; 74178; 76700; 80053; 80061; 81001; 81220; 82270; 82550; 82607; 82728; 82746; 82948; 83010; 83036; 83540; 83615; 83735; 84466; 84484; 85025; 85045; 85610; 85730; 86039; 86431; 86850; 86870; 86880; 86900; 86905; 87086; 99001; 99284; J1561; J2405; J2916; J2919; J7050; J7512; P9034; Q9967